=== PATIENT | male | born 1990 | race Caucasian/White ===

== ENCOUNTER 2020-04-18 08:42 | Outpatient (CLI) | payer MEDICAID, SELFPAY ==
[2020-04-21 05:37] LABS: Patient Race White; SARS-CoV-2 RNA Undetected (Undetected); SARS-CoV-2 Specimen Source Nasal
== END 2020-04-18 09:02 ==
PROVIDERS: PCP Nurse Practitioner; Visit Provider Nurse Practitioner Adult Health
DX: Z11.59 Encounter for screening for other viral diseases (principal)
CPT/HCPCS: U0003

== ENCOUNTER 2022-07-29 13:23 | Emergency (ER) | payer MEDICARE, MEDICAID, SELFPAY ==
[2022-07-29 13:27] VITALS: BP 115/72; PULSE 94; RESP 16; TEMP 37.4; O2SAT 97
--- NOTE | 2022-07-29 13:50 | W.ED.GENAD ---
Discharge Plan Disposition Patient Disposition: Home Discharge Details Clinical Impression: Erythematous rash Primary Care Provider: Dipti Florentino ED Provider: Freddy Swain Home Meds and New Rx's Prescriptions: No Action No Known Home Meds Discharge Instructions Additional Instructions: You were seen in the emergency department for your rash. Your rash does not appear dangerous at this point time. If you develop fevers difficulty breathing or any blisters to your rash please return to the emergency department. For your cold symptoms you may take DayQuil as directed on the package during the day. You may also take Tylenol 1000 mg every 8 hours as needed. Medical Decision Making This is a quite well-appearing normothermic and not tachycardic 32-year-old previously healthy male with erythematous rash. He has no petechial component to suggest meningitis. He is not toxic appearing and has no blisters to suggest Byrd-Coy's nor [place]. No new medications nor fevers to suggest dress syndrome. No vesicles to suggest zoster. No pain out of proportion to suggest necrotizing soft tissue infection. No shortness of breath hypoxia nausea vomiting nor wheezes to suggest anaphylaxis so no indication for epinephrine. Patient's rash is likely a viral exanthem secondary to his current URI symptoms for which I have advised [id number]-[id number] medications as needed. Given that there was a component of pruritus will treat with one-time oral dexamethasone at 8 mg. I have advised outpatient PMD follow-up and asked health community health outreach worker Elin to coordinate follow-up patient's primary care team in the next week. I also advised patient to return to the emergency department if he develops shortness of breath fevers or any blisters on his rash. He understood his return indications and will proceed with an empiric trial of outpatient expectant management. Chronic conditions affecting the care of the patient: N/A History obtained from an outside historian: None External record review: N/A Medications: One-time dexamethasone HPI General Date/Time Provider Initiated Documentation: 07/29/22 13:47. HPI Narrative: This is a 32-year-old male with a history of ADHD and autism arriving to the emergency department in the setting of a rash. Patient noted that he had a rash on his right lower extremity yesterday that resolved. This morning he noticed that he had rashes to his bilateral forearms. He has also had a runny nose and a cough. He tested himself at home and was negative for COVID. He has had no new medications nor any new detergents. He said that his rash was itching this morning previously on his left arm. He does not feel short of breath. He has not been nauseous nor vomiting. He denies any allergies. He did not have any new foods. Denies any history of any recent falls. Follows with his primary care provider with [facility]. Related Data Home Medications Medication Instructions Recorded Confirmed Unknown [No Known Home Meds] 07/29/19 07/29/22 Allergies Allergy/AdvReac Type Severity Reaction Status Date / Time No Known Allergies Allergy Verified 07/29/22 13:33 General Stated Complaint: RashLesion ALISON: 4 PFSH All Active Problems (Updated 07/29/22 @ 13:50 by Freddy Swain MD) Erythematous rash (Acute) Conductive hearing loss, external ear (Acute) Impacted cerumen of left ear (Acute) Routine general medical examination at a health care facility (Acute) Autism (Acute) Attention deficit disorder with hyperactivity (Acute) Encounter to establish care (Acute) Medical History Attention deficit disorder without mention of hyperactivity Surgical History H/O eye surgery at History of placement of ear tubes ~1992 Family History Mother Alcohol abuse Substance abuse Father , Heart Attack or Stroke Alcohol abuse Substance abuse Social History Smoking/Tobacco Use Status: Current-Occasional Tobacco Type: e-cigarettes Smoking risk assessment performed?: Yes Alcohol Intake: never Substance use type: marijuana Details: Patient vapes Adopted: Yes Foster care: Yes Household members: none Housing: house Number of Children: 1 Communication Needs: Corrective Lenses Education Level: high school Do you need help understanding health information?: Always 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 Sexually active: Yes Do you think of yourself as: straight/heterosexual Current gender identity: male How often do you talk on the phone with friends or family?: once per week How often do you get together with friends or relatives?: once per week Panel score (0-1 are the most socially isolated patients): 0 What type of physical activity do you participate in: walking Duration: 15-30 minutes/day Frequency: daily Seatbelt use: always Drive intox or ride w/intox explosives truck driver: No Working smoke detector in home: Yes Fire extinguisher in home: Yes Carbon monox detector in home: Yes Do you feel safe at home: Yes Exam Narrative Exam Narrative: General: Well-appearing in no acute distress speaking in complete sentences. Head: Normocephalic, atraumatic Ear, nose, mouth, throat: Grossly normal inspection. Normal voice, handling secretions normally. Neck: Trachea midline. Cardiovascular: Well-perfused distal extremities. Respiratory: Nonlabored respiration. Gastrointestinal: Nondistended abdomen. Musculoskeletal: No edema. Moving all 4 extremities spontaneously. Skin: Mildly erythematous rash to bilateral forearms and ACs. Rash is blanching. No petechiae. No bullae. No excoriations. No rash to bilateral lower extremities. Neurologic: Alert and appropriate, no apparent acute deficits. Psychiatric: Mood and manner are appropriate. Grooming and personal hygiene are appropriate. Course Vital Signs Vital signs: Vital Signs Temperature 37.4 C 07/29/22 13:27 Pulse 94 H 07/29/22 13:27 Respiratory Rate 16 07/29/22 13:27 Blood Pressure 115/72 07/29/22 13:27 Pulse Oximetry 97 07/29/22 13:27 Temperature 37.4 C 07/29/22 13:27 Pulse 94 H 07/29/22 13:27 Respiratory Rate 16 07/29/22 13:27 Respiratory Effort Normal 07/29/22 13:33 Blood Pressure 115/72 07/29/22 13:27 Blood Pressure Position Sitting 07/29/22 13:27 Pulse Oximetry 97 07/29/22 13:27 Oxygen Delivery Method Room Air 07/29/22 13:27 Oxygen Flow Rate 0 07/29/22 13:27 Pain Level 4 07/29/22 13:27
[2022-07-29] MEDS: Dexamethasone 4 MG TAB 8 MG PO (14:01)
--- NOTE | 2022-07-29 14:23 | NUR.NOTE ---
Referral made per Dr. Swain to PCP at [facility] in 5 days for a rash. Put the referral in the director of health care marketing's box for follow up assistance.Nursing Note:
== END 2022-07-29 14:01 | disposition home or self-care (01) ==
PROVIDERS: Emergency Provider Emergency Medicine; PCP Nurse Practitioner
DX: L53.9 Erythematous condition, unspecified (principal); F90.9 Attention-deficit hyperactivity disorder, unspecified type; F84.0 Autistic disorder
CPT/HCPCS: 99283; 99284; J8540

== ENCOUNTER 2022-07-31 02:09 | Outpatient (CLI) | payer MEDICARE, MEDICAID, SELFPAY ==
[2022-07-31 11:23] LABS: Calculated LDL 49 mg/dL (<100); Cholesterol 111 mg/dL (<200); HDL Cholesterol 56 mg/dL (40-60); Triglyceride 34 mg/dL (<150)
[2022-08-01 10:15] LABS: HIV-1/2 Ag & Ab Screen Negative (Negative)
[2022-08-01 12:13] LABS: Hepatitis C Ab w Rflx HCV PCR Negative (Negative)
== END 2022-07-31 02:10 | disposition home or self-care (01) ==
LOC: LBO 02:09
PROVIDERS: PCP Nurse Practitioner; Visit Provider Nurse Practitioner
DX: Z11.59 Encounter for screening for other viral diseases (principal); Z13.220 Encounter for screening for lipoid disorders
CPT/HCPCS: 36415; 80061; 86803; 87389

== ENCOUNTER 2023-06-17 15:45 | Outpatient (REF) | payer MEDICARE, MEDICAID, SELFPAY ==
[2023-06-17 18:00] LABS: HCT 47.5 % (40.0-50.0); HGB 16.2 g/dL (13.5-17.5); MCH 31.2 pg (27.0-33.0); MCHC 34.1 % (32.0-36.0); MCV 91 fL (80-95); MPV 10.6 fL (8.0-11.0); Platelet Count 280 10^3/uL (130-400); RDW 12.6 % (11.8-14.1); RDW-SD 41.8 fL; WBC 13.46 10^3/uL (4.4-10.8)
[2023-06-17 18:17] LABS: ALT 79 U/L (16-63); AST 32 U/L (15-37); Albumin 4.2 g/dL (3.4-5.0); Alkaline Phosphatase 71 U/L (46-116); Anion Gap 9.4 mmol/L (3-11); BUN 10 mg/dL (7-18); Bilirubin, Total 0.5 mg/dL (0.2-1.0); CO2 26.6 mmol/L (21.0-32.0); CREATININE 0.9 mg/dL (0.70-1.30); Calcium 9.5 mg/dL (8.5-10.1); Chloride 102 mmol/L (98-107); Estimated GFR 114.93 (mL/min/1.73m2); Glucose 103 mg/dL (74-106); Lipase 33 U/L (16-77); Potassium 4.4 mmol/L (3.5-5.1); Sodium 138 mmol/L (136-145); Total Protein 7.3 g/dL (6.4-8.2)
== END 2023-06-17 15:46 | disposition home or self-care (01) ==
LOC: LBN 15:45
PROVIDERS: PCP Nurse Practitioner; Visit Provider Nurse Practitioner Family
DX: R10.11 Right upper quadrant pain (principal)
CPT/HCPCS: 80053; 83690; 85027

== ENCOUNTER → 2023-06-18 01:55 | Outpatient (CLI) | payer MEDICARE, MEDICAID, SELFPAY ==
--- NOTE | 2023-06-18 | DI.US_ITS ---
Exam(s) US ABDOMEN EXAM: US ABDOMEN CLINICAL HISTORY: RUQ PAIN,R10.11 TECHNIQUE: Ultrasound of complete upper abdomen performed using standard protocol. COMPARISON: No exams were available for comparison FINDINGS: There is no ascites evident. LIVER: Liver is hyperechoic indicating an element of steatosis. Liver size appears normal. There ar e no discrete focal hepatic lesions evident. GALLBLADDER/BILIARY: Gallbladder is contracted and difficult to evaluate. There appears to be a poss ible 7 mm calculus in the gallbladder neck region. Gallbladder appears somewhat edematous but this m ay be spurious/related to being contracted The common hepatic duct isnot dilated, measuring 4mm at the level of deisi hepatis. PANCREAS: There is no evidence of pancreatic mass nor dilatation of the pancreatic duct. SPLEEN: The spleen is not enlarged and there are no intrasplenic lesions evident. KIDNEYS:Kidneys exhibit normal size with no evidence of solid mass, calculus, nor hydronephrosis. No cortical cysts evident. ABDOMINAL AORTA: There is no evidence of abdominal aortic aneurysm. IVC: Normal diameter where visualized. IMPRESSION: 1. Gallbladder is contracted and difficult to evaluate but there appears to be a probable gallstone. Recommend repeat study after NPO for longer period of time. Apparently the patient was not tender over the gallbladder during scanning today. I recommend repeating the study after 18 at hours fastin g 2. No other significant ultrasound findings in the upper abdomen. 3. There is no ascites. DATA REPOSITORY:
== END ==
PROVIDERS: PCP Nurse Practitioner; Visit Provider Nurse Practitioner Family
DX: K80.00 Calculus of gallbladder with acute cholecystitis without obstruction (principal)
CPT/HCPCS: 76700

== ENCOUNTER → 2023-06-19 01:51 | Outpatient (CLI) | payer MEDICARE, MEDICAID, SELFPAY ==
--- NOTE | 2023-06-19 07:00 | DI.US_ITS ---
Exam(s) US ABDOMEN LIMITED EXAM: US ABDOMEN LIMITED CLINICAL HISTORY: RUQ pain,R10.11,REPEAT TECHNIQUE: Ultrasound abdomen performed using standard protocol. COMPARISON: US US ABDOMEN from 06/18/2023 FINDINGS: The patient has been NPO 18 hours. GALLBLADDER:The gallbladder is contracted. There is a 6 mm stone within the gallbladder. It is not mobile. No evidence of wall thickening. No pericholecystic fluid identified. BILIARY SYSTEM: Common bile duct measures < 7 mm. No intrahepatic biliary ductal dilation. DO'S SIGN: Negative. IMPRESSION: Cholelithiasis within a contracted gallbladder. No biliary ductal dilatation. DATA REPOSITORY:
== END ==
PROVIDERS: PCP Nurse Practitioner; Visit Provider Nurse Practitioner
DX: R10.11 Right upper quadrant pain (principal); K80.20 Calculus of gallbladder without cholecystitis without obstruction
CPT/HCPCS: 76705

== ENCOUNTER 2023-10-11 05:17 | Emergency (ER) | payer MEDICARE, MEDICAID, SELFPAY ==
[2023-10-11 05:19] VITALS: BP 147/83; PULSE 65; RESP 18; TEMP 36.4; O2SAT 96
[2023-10-11] MEDS: Ketorolac 15 MG/ML VIAL IVP (05:33)
[2023-10-11] MEDS: Acetaminophen 500 MG TAB 1000 MG PO (05:33)
[2023-10-11 05:38] LABS: Lactate 1.1 mmol/L (0.6-1.4)
[2023-10-11 05:40] LABS: Abs Immature Grans 0.02 10^3/uL (0.0-0.06); Absolute Basophil Count 0.05 10^3/uL (0.0-0.2); Absolute Eosinophil Count 0.11 10^3/uL (0.0-0.7); Absolute Lymphocyte Count 2.02 10^3/uL (1.2-3.4); Absolute Monocyte Count 0.42 10^3/uL (0.1-0.8); Absolute Neutrophil Count 4.52 10^3/uL (1.2-6.7); Basophils % 0.7 %; Eosinophils % 1.5 %; HCT 48.5 % (40.0-50.0); HGB 16.4 g/dL (13.5-17.5); Immature Grans % 0.3 %; Lymphocytes % 28.3 %; MCH 31.5 pg (27.0-33.0); MCHC 33.8 % (32.0-36.0); MCV 93 fL (80-95); MPV 9.9 fL (8.0-11.0); Monocytes % 5.9 %; Neutrophils % 63.3 %; Platelet Count 237 10^3/uL (130-400); RDW 12.6 % (11.8-14.1); RDW-SD 43.2 fL; WBC 7.14 10^3/uL (4.4-10.8)
--- NOTE | 2023-10-11 05:40 | ED.GENADUL_ITS ---
Discharge Plan Disposition Patient Disposition: Home Condition: Good Discharge Details Clinical Impression: Biliary colic Primary Care Provider: Dipti Florentino ED Provider: Anastacia Bonilla Discharge Instructions Instructions: Biliary Colic (ED) Additional Instructions: Call your primary care doctor today to schedule an appointment within one week to followup on your visit today. Return to the emergency department for new or worsening symptoms including fever, yellowing of your skin, vomiting, or if your pain returns and does not go away within 3-4 hours. Stand Alone Forms: Work Release Referrals: Dipti Florentino, KIARA [Primary Care Provider] - [facility] General Mode of arrival: ambulatory . Date/Time Provider Initiated Documentation: 10/11/23 05:21 . Limitations to Documentation: no limitations . Information obtained by: patient, family ([facility] child care center assistant director) and old records reviewed . HPI Narrative: 33yo M with hx autism, ADHD, known gallstones, presenting for RUQ pain. Woke around 0430 this morning with moderate 5-6/10 RUQ pain. Has not taken anything for pain. Pain is dull, burning, constant, non-radiating. No alleviating or aggravating factors. Had similar pain in June and was seen in urgent care and diagnosed with gallstones. Pain has decreased to around 2/10 prior to arrival. No fevers, nausea, or vomiting. He is otherwise in his usual state of health with no chills, rash, lower abdominal pain, flank pain, dysuria, hematuria, or other concerns. Related Data Allergies Allergy/AdvReac Type Severity Reaction Status Date / Time No Known Allergies Allergy Verified 10/11/23 05:27 General Stated Complaint: Abd Prob ALISON: 3 Review of Systems Narrative: see HPI Exam Narrative Exam Narrative: General: Alert, well appearing, well nourished, in no acute distress. Head: Normocephalic, atraumatic Neck: Trachea midline, ?Neck supple. Cardiac: ?RRR, no murmurs appreciated Resp: No respiratory distress. CTAB. Abd: ?Soft, non-distended, non-tender. No RUQ tenderness to palpation. Negative Young's. No abdominal, flank, or back rash. : ?No suprapubic tenderness. No CVA tenderness. Extremities: ?No deformities.? No peripheral edema. Neurologic: GCS 15. ? Moves all extremities freely against gravity Course Vital Signs Vital signs: Vital Signs Temperature 36.4 C 10/11/23 05:19 Pulse 65 10/11/23 05:19 Respiratory Rate 18 10/11/23 05:19 Blood Pressure 147/83 H 10/11/23 05:19 Pulse Oximetry 96 10/11/23 05:19 Temperature 36.4 C 10/11/23 05:19 Temperature Source Oral 10/11/23 05:19 Pulse 65 10/11/23 05:19 Respiratory Rate 18 10/11/23 05:19 Respiratory Effort Normal, Non-Labored 10/11/23 05:23 Blood Pressure 147/83 H 10/11/23 05:19 Blood Pressure Position Sitting 10/11/23 05:19 Pulse Oximetry 96 10/11/23 05:19 Oxygen Delivery Method Room Air 10/11/23 05:19 Oxygen Flow Rate 0 10/11/23 05:19 Pain Level 5 10/11/23 05:19 Medical Decision Making 33yo M with hx autism, ADHD, known gallstones, presenting for RUQ pain. Woke around 0430 this morning with moderate 5-6/10 RUQ pain; has decreased to 2/10 without intervention. Similar pain in June; US read from that time reviewed and showed contracted gallbladder with gallstone present. Borderline hypertensive on arrival, vital signs otherwise reassuring. Benign abdominal exam with negative Young's and no RUQ tenderness. No rash to suggest shingles. No CVA tenderness or hematuria to suggest kidney stone. Not septic. Suspect most likely symptomatic biliary colic. Will treat with tylenol & toradol. If pain continues to decreases and labs reassuring, would not pursue imaging/ultrasound (no ultrasound available at this time, would need to wait for morning). Labs reviewed as below, CBC with no leukocytosis or anemia, CMP with normal LFTs and electrolytes, lipase normal (not pancreatitis), lactate normal. UA not suggestive on infection or stone. On reassessment he reports his pain has entirely resolved. Abdominal exam remains benign. With complete resolution of pain and known gallstones, little utility to repeat RUQ US this morning. Discharged home to followup with PCP, may benefit from surgical referral at some point, will defer to PCP. Discharged home; discharge instructions and return precautions reviewed with patient and family at bedside. All questions were answered and they are in full agreement with the plan. Lab Data Lab results reviewed: Yes I reviewed the patient's lab results. Labs: Laboratory Tests Range/Units 10/11/23 05:35 WBC (4.4-10.8) 10^3/uL 7.14 RBC (4.36-5.78) 10^6/uL 5.20 Hgb (13.5-17.5) g/dL 16.4 Hct (40.0-50.0) % 48.5 MCV (80-95) fL 93 MCH (27.0-33.0) pg 31.5 MCHC (32.0-36.0) % 33.8 RDW (11.8-14.1) % 12.6 Plt Count (130-400) 10^3/uL 237 MPV (8.0-11.0) fL 9.9 Immature Gran % % 0.3 Neutrophils % % 63.3 Lymphocytes % % 28.3 Monocytes % % 5.9 Eosinophils % % 1.5 Basophils % % 0.7 Nucleated RBC % (0.0-0.3) % 0.0 Absolute Neutrophils (1.2-6.7) 10^3/uL 4.52 Absolute Lymphocytes (1.2-3.4) 10^3/uL 2.02 Absolute Monocytes (0.1-0.8) 10^3/uL 0.42 Absolute Eosinophils (0.0-0.7) 10^3/uL 0.11 Absolute Basophils (0.0-0.2) 10^3/uL 0.05 VBG Lactate (0.6-1.4) mmol/L 1.1 Sodium (136-145) mmol/L 143 Potassium (3.5-5.1) mmol/L 4.0 Chloride (98-107) mmol/L 106 Carbon Dioxide (21.0-32.0) mmol/L 26.6 Anion Gap (3-11) mmol/L 10.4 BUN (7-18) mg/dL 13 Creatinine (0.70-1.30) mg/dL 1.0 Est GFR (CKD-EPI 2020) (mL/min/1.73m2) 101.28 Glucose (74-106) mg/dL 106 Calcium (8.5-10.1) mg/dL 8.7 Total Bilirubin (0.2-1.0) mg/dL 0.5 AST (15-37) U/L 18 ALT (16-63) U/L 57 Alkaline Phosphatase (46-116) U/L 77 Total Protein (6.4-8.2) g/dL 7.3 Albumin (3.4-5.0) g/dL 4.0 Lipase (16-77) U/L 55 Quality:SDOH Health Related Social Needs: Health related social needs risk of homeless Health related social needs details has own apartment, no issues with food sources per pt. PFSH All Active Problems (Updated 10/11/23 @ 06:57 by Anastacia Bonilla MD) Biliary colic (Acute) Cholelithiasis (Acute) per 06/19/23 US RUQ discomfort (Acute) Gastrointestinal tract imaging abnormality (Acute) 06/2023 US ([facility]) Conductive hearing loss, external ear (Acute) Impacted cerumen of left ear (Acute) Routine general medical examination at a health care facility (Acute) Autism (Acute) Attention deficit disorder with hyperactivity (Acute) Encounter to establish care (Acute) Medical History Attention deficit disorder without mention of hyperactivity Surgical History H/O eye surgery at History of placement of ear tubes ~1992 Family History Mother Alcohol abuse Substance abuse Father , Heart Attack or Stroke Alcohol abuse Substance abuse Social History (Updated 06/11/23 @ 10:44 by Rosy Rivero LPN) Smoking/Tobacco Use Status: Current-Occasional Tobacco Type: e-cigarettes Smoking risk assessment performed?: Yes Alcohol Intake: never Drug use: Occasionally Substance use type: marijuana Details: Patient vapes Adopted: Yes Foster care: Yes Household members: none Housing: apartment Number of Children: 1 Communication Needs: Corrective Lenses Education Level: high school Do you need help understanding health information?: Always current occupation: unemployed at present Sexually active: Yes Do you think of yourself as: straight/heterosexual Current gender identity: male How often do you talk on the phone with friends or family?: once per week How often do you get together with friends or relatives?: once per week Panel score (0-1 are the most socially isolated patients): 0 What type of physical activity do you participate in: walking Duration: 15-30 minutes/day Frequency: daily Seatbelt use: always Drive intox or ride w/intox ems driver: No Working smoke detector in home: Yes Fire extinguisher in home: Yes Carbon monox detector in home: Yes Do you feel safe at home: Yes Do you feel safe in your relationship?: Yes
[2023-10-11 05:55] LABS: ALT 57 U/L (16-63); AST 18 U/L (15-37); Alkaline Phosphatase 77 U/L (46-116); Anion Gap 10.4 mmol/L (3-11); BUN 13 mg/dL (7-18); Bilirubin, Total 0.5 mg/dL (0.2-1.0); CO2 26.6 mmol/L (21.0-32.0); Calcium 8.7 mg/dL (8.5-10.1); Chloride 106 mmol/L (98-107); Estimated GFR 101.28 (mL/min/1.73m2); Glucose 106 mg/dL (74-106); Lipase 55 U/L (16-77); Sodium 143 mmol/L (136-145); Total Protein 7.3 g/dL (6.4-8.2)
[2023-10-11 06:55] LABS: Bilirubin Negative (Negative); Blood Negative (Negative); Clarity Clear (Clear); Glucose Negative (Negative); Ketones Negative (Negative); Leukocyte Esterase Negative (Negative); Nitrite Negative (Negative); Specific Gravity >= 1.030 (1.005-1.025); Urobilinogen 0.2 mg/dL (Up to 0.2); pH 5.5 (5-8)
[2023-10-11 07:07] VITALS: BP 138/57; PULSE 78; RESP 21; TEMP 36.6; O2SAT 96
== END 2023-10-11 07:09 | disposition home or self-care (01) ==
PROVIDERS: Emergency Provider Student in an Organized Health Care Education/Training Program; PCP Nurse Practitioner
DX: K80.20 Calculus of gallbladder without cholecystitis without obstruction (principal); F17.290 Nicotine dependence, other tobacco product, uncomplicated
CPT/HCPCS: 80053; 83690; 96374; 99283; 81003; 83605; 85025; J1885

== ENCOUNTER 2023-12-29 04:48 | Emergency (ER) | payer MEDICARE, MEDICAID, SELFPAY ==
[2023-12-29 04:50] VITALS: BP 141/84; PULSE 75; RESP 16; TEMP 36.8; O2SAT 98
[2023-12-29 04:52] VITALS: BP 141/84; PULSE 75; RESP 16; TEMP 36.8; O2SAT 98
--- OUTSIDE RECORDS SUMMARY | 2023-12-29 04:53 | XMS_ITS | Encounter Summary ---
Author Organization [facility] Address [address] [place] [address] Care Team Providers Care Respiratory Equipment Assistant Name Role Phone Gennaro Gomez MD Primary Care Provider +1 [phone] Reason for Visit * Reason Comments Sexually Transmitted Diseases ALYSSA Moreno Encounter Details Date Type Department Care Team (Late st Contact Info) Description 10/27/2018 16:30 EDT Office Visit [facility] [address] [id number] Mariana Stewart, Ruiz Cardenas MD [address] [place] [address] Rox Morris MD [address] [place] [id number] Routine screening for STI (sexually transmitted infection) (Primary Dx); Need for Tdap vaccination Discharge Disposition: Auto Discharge Social History Tobacco Use Types Packs/Day Years Used Date Smoking Tobacco: Never Smokeless Tobacco: Never Comments:Uses Vapor cigarett es (non nicotine) Alcohol Use Standard Drinks/Week Comments Yes 0 (1 standard drink = 0.6 oz pur e alcohol) Sex and Gender Information Value Date Recorded Sex Assigned at Not on file Gender Identity Not on file Sexual Orientation Not on file documented as of this encounter Last Filed Vital Signs Vital Sign Reading Time Taken Comments Blood Pressure 106/62 10/27/2018 1633 EDT Pulse 68 10/27/2018 1633 EDT Temperature - - Respiratory Rate - - Oxygen Saturation - - Inhaled Oxygen Concentration - - Weight 76.2 kg (168 lb) 10/27/2018 1633 EDT Height 175.3 cm (5' 9) 10/27/2018 1633 EDT Body Mass Index 24.81 10/27/2018 1633 EDT documented in this encounter Functional Status Functional Status Response Date of Assess ment Because of a physical, menta l, or emotional condition, does this person have difficulty doing errands alone such as visiting a doctor's office or shopping? No 10/27/2018 Cognitive Status Response Date of Assessm ent Because of a physical, menta l, or emotional condition, does this person have serious difficulty concentrating, remembering, or making decisions? No 10/27/2018 documented as of this encounter Discharge Diagnoses Diagnosis Z11.3 Encounter for screening for infections with a predominantly sexual mode of transmission-Z11.3[ICD-10-CM] documented in this encounter Patient Instructions * Patient Instructions* Rox Morris MD - 10/27/2018 16:30 EDT [facility] [address] [facility] [phone] Albaro Richardson DDS [address] [place], [place] [phone] [facility] [address] [place] [address] [phone] Private Practices with reputation for income sensitivity [facility] [address] [facility] [place], [place] [phone] [facility] [address] [place] [address] [phone] Federally Qualified Health Centers - offer sliding scale fee based on income Nearby... [facility]: [address] [place], [place]. [phone] [facility]: [address] [place], [place]. [phone] Further away... [facility]: [address] [place], [place]. [phone] [facility]: [address] [place], [place]. [phone] [facility]: [address], [place], [place]. [phone] [facility]: [address] [place], [place]. [phone] [facility]: [address] [place], [place]. [phone] [facility]: [address] [place], [place]. [phone] [facility]: [address] [phone] [facility]: [address] [place], [place]. [phone] [facility]: [address] [place], [place]. [phone] documented in this encounter Discharge Disposition Disposition Code Departure Means Destination Auto Discharge documented in this encounter Progress Notes * Mariana Stewart FNP - 10/27/2018 1630 EDT New Patient Visit Note Date of Service: 10/27/2018 CC: Sexually Transmitted Diseases (NEW PATIENT ) Subjective: Edin Wallace is a 28 y.o. male with no significant PMH, here to establish care with a PCP and for STI testing. Sexual history reviewed with the patient. Current 1 female partner. No past male partners. Has never had STI testing before. STD exposure: denies knowledge of risky exposure. Previous history of STD: none. Current symptoms include none. Contraception: none. ROS Denies fevers, chills, chest pain, shortness of breath, abdominal pain, leg swelling, unintentionalweight loss, nausea, vomiting, rash, sore throat History: Social, family, and personal medical history reviewed and documented in the medical [id number] Patient Active Problem List Diagnosis Date Noted ??? ADHD 10/27/2018 Priority: Medium Diagnosed as a child, not on any medications as an adult Medications: Reviewed and documented in the medical record 10/27/18 No current outpatient medications No Known Allergies Immunizations: Unsure of last tetanus booster Social History Tobacco Use ??? Smoking status: Never Smoker ??? Smokeless tobacco: Never Used ??? Tobacco comment: Uses Vapor cigarettes (non nicotine) Substance Use Topics ??? Alcohol use: Yes ??? Drug use: Yes Types: Marijuana Works in [employer] Lives here in [place] Lives with his partner/ friend Teresa Patient is adopted; limited known family history Objective: VS: Blood pressure 106/62, pulse 68, height 175.3 cm (69), weight 76.2 kg (168 lb). Body mass index is 24.81 kg/m??. Physical Exam Gen: sitting comfortably in exam chair Psych: alert and oriented x 3, cooperative HEENT: MMM. PERRL. Broken backmost molar of the left, without evidence of caries or abscess/infection. CV: Heart RRR Lungs: Effort Normal, lungs clear to auscultation GI: abdomen non distended Neuro: moves all 4 extremities. Grossly normal Ext: warm and well perfused. No edema. Vitals reviewed Assessment and Plan: Edin was seen today for sexually transmitted diseases. Diagnoses and all orders for this visit: Routine screening for STI (sexually transmitted infection) No prior STI history, here to establish care and obtain routine STI screening in a relatively low-risk heterosexual male. Will call with results. - HIV 1/2 ANTIGEN AND ANTIBODY, 4TH GENERATION - SYPHILIS SEROLOGY - CHLAMYDIA/N. GONORRHOEAE AMPLIFIED RNA, URINE - HEPATITIS C AB W REFLEX TO HCV RNA BY PCR Need for Tdap vaccination Unknown last tetanus vaccine. Works in [employer], counseled on recommendation to perform Tdap booster today, which patient accepted - TDAP VACCINE =>7YO IM Seen and discussed with Dr. Rivas at time of visit Rox Morris MD 10/27/2018 18:30 * Iris Roman - 10/27/2018 1630 EDT Venipuncture performed for Syphilis, HIV and Hep C. Collected in right arm without incident. Per orders of Margret Rivas Diagnosis of Z11.4 I was supervised by Sathish Rivas who was present and immediately available in the office suite. Iris Roman 10/27/2018 17:27 * Ruiz Rivas - 10/27/2018 1630 EDT Attestation statement for office patient seen by attending: I saw and examined the patient on the day of this service and agree with the findings and plan of care documented in the resident's/fellow's note. Ruiz Rivas MD Family Medicine Attending 10/28/2018 6:28 documented in this encounter Plan of Treatment Not on file documented as of this encounter Procedures Procedure Name Priority Date/Time Associated Diagnosis Comments SYPHILIS SEROLOGY Routine 10/27/2018 16: 55 EDT Routine screening for STI (sexually transmitted infection) CHLAMYDIA/N. GONORRHOEAE AMPLIFIED RNA, URINE Routine 10/27/2018 16:55 EDT Routine screening for STI (sexually transmitted infection) HEPATITIS C AB W REFLEX TO HCV RNA BY PCR Routine 10/27/2018 16:55 EDT Routine screening for STI (sexually transmitted infection) HIV 1/2 ANTIGEN AND ANTIBODY, 4TH GENERATION Routine 10/27/2018 16:55 EDT Routine screening for STI (sexually transmitted infection) documented in this encounter Results * HEPATITIS C AB W REFLEX TO HCV RNA BY PCR (10/27/2018 16:55 EDT) Hep C Ab w Rfx PCR HCSCR2 Negative Negative 10/28/2018 11:27 EDT [facility] Blood specimen (specimen) BLOOD SPECIMEN / Unknown 10/27/2018 16:55 EDT 10/27/2018 19:30 EDT Ruiz Rivas MD CHEMISTRY & BLOOD GA S ORDERABLES [facility] [address] [place] [address] * CHLAMYDIA/N. GONORRHOEAE AMPLIFIED RNA, URINE (10/27/2018 16:55 EDT) Chlamydia Result Negative 10/28/2018 14:52 EDT [facility] GC Result Negative 10/28/2018 14:52 EDT [facility] Specimen of unknown material (specimen) URINE / Unknown 10/27/2018 16:55 EDT 10/27/2018 20:25 EDT Ruiz Rivas MD MICROBIOLOGY - GENER AL ORDERABLES Performing Organization Address [facility] Co de Phone Number [facility] [address] [place] [address] * SYPHILIS SEROLOGY (10/27/2018 16:55 EDT) Syphilis Serology Negative 10/28/2018 10:37 EDT [facility] Comment:Reference Range: Neg ative Blood specimen (specimen) BLOOD SPECIMEN / Unknown 10/27/2018 16:55 EDT 10/27/2018 19:30 EDT Ruiz Rivas MD IMMUNOLOGY AND SEROL OGY ORDERABLES Performing Organization Address [facility] Co de Phone Number [facility] [address] [place] [address] * HIV 1/2 ANTIGEN AND ANTIBODY, 4TH GENERATION (10/27/2018 16:55 EDT) HIV 1/2 Antibody Negative Negative 10/29/19 12:22 EDT [facility] Comment: Fourth generation assay performed on the Siemens Centaur. If acute HIV-1 infection is suspected in a high risk patient, submit plasma specimen for HIV-1 RNA quantification test. Blood specimen (specimen) BLOOD SPECIMEN / Unknown 10/27/2018 16:55 EDT 10/27/2018 19:30 EDT Ruiz Rivas MD IMMUNOLOGY AND SEROL OGY ORDERABLES Performing Organization Address [facility] Co de Phone Number [facility] [address] [place] [address] documented in this encounter Visit Diagnoses Diagnosis Routine screening for STI (sexually transmitted infection)- Primary Screening examination for venereal disease Need for Tdap vaccination Need for prophylactic vaccination with combined nztwyntjmy-lropjkh-tqdbcngjx (DTP) vaccine documented in this encounter Orders Immunization/Injection Count Last Ordered Date First Ordered Date TDAP VACCINE =>7YO IM 1 10/27/2018 documented in this encounter Care Teams Respiratory Equipment Assistant Relationship Specialty Start Date End Date Gennaro Gomez MD PCP - General 10/22/18 12/06/20 documented as of this encounter
--- OUTSIDE RECORDS SUMMARY | 2023-12-29 04:53 | XMS_ITS | Encounter Summary ---
Author Organization [facility] Address [address] [place] [address] Care Team Providers Care Continuous Pickling Line Pickler Helper Name Role Phone Peyton Lynch MD Primary Care Provid er Encounter Details Date Type Department Care Team (Late st Contact Info) Description 07/31/2022 Lab Requisition [facility] Pathology & Laboratory Medicine - [facility] [address] [place] [address] Outr Resulting Lab, Provider Social History Tobacco Use Types Packs/Day Years Used Date Smoking Tobacco: Never Assessed Interpersonal Safety Answer Date Record ed Physically Hurt Never 01/10/2020 Verbally Threaten Not on file 01/10/2020 Sex and Gender Information Value Date Recorded Sex Assigned at Not on file Gender Identity Not on file Sexual Orientation Not on file documented as of this encounter Functional Status Functional Status Response [...] No 10/27/2018 documented as of this encounter Plan of Treatment Not on file documented as of this encounter Procedures Procedure Name Priority Date/Time Associated Diagnosis Comments HEPATITIS C AB W REFLEX TO HCV RNA BY PCR Routine 07/31/2022 10:38 EST documented in this encounter Results * HEPATITIS C AB W REFLEX TO HCV RNA BY PCR (07/31/2022 10:38 EST) Hep C Antibody Negative Negative 08/01/2022 12:09 EST [facility] Blood VENOUS BLOOD / Unknown 07/31/2022 10:38 EST 07/31/2022 17:14 EST Provider Outr Resulting Lab CHEMISTRY & BLOOD GAS ORDERABLES [facility] [address] [place] [address] documented in this encounter Visit Diagnoses Not on filedocumented in this encounter Care Teams Continuous Pickling Line Pickler Helper Relationship Specialty Start Date End Date Peyton Lynch MD [address] [place] [address] PCP - General 12/07/20 documented as of this encounter
--- OUTSIDE RECORDS SUMMARY | 2023-12-29 04:53 | XMS_ITS | Encounter Summary ---
Author Organization [facility] Address [address] [place] [address] Care Team Providers Care Manager Infusion Name Role Phone Peyton Lynch MD Primary Care Provid er Encounter Details Date Type Department Care Team (Late st Contact Info) Description 07/31/2022 Lab Requisition [facility] Pathology & Laboratory Medicine - [facility] [address] [place] [address] Outr Resulting Lab, Provider Social History Tobacco [...] Procedure Name Priority Date/Time Associated Diagnosis Comments HIV 1/2 ANTIGEN AND ANTIBODY, 4TH GENERATION Routine 07/31/2022 10:38 EST documented in this encounter Results * HIV 1/2 ANTIGEN AND ANTIBODY, 4TH GENERATION (07/31/2022 10:38 EST) HIV 1 and 2 Antibody/p24 Antigen, 4th Generation Negative Negative 08/01/2022 10:10 EST [facility] Comment:If acute HIV-1 infec tion is suspected in a high risk patient, submit plasma specimen for HIV-1 RNA quantitation test. Blood VENOUS BLOOD / Unknown 07/31/2022 10:38 EST 07/31/2022 17:14 EST Narrative [facility] - 08/01/2022 10:10 EST Fourth Generation assay performed on the Siemens Passenger Baggage Xpressaur XPT. Provider Outr Resulting Lab IMMUNOLOGY A ND SEROLOGY ORDERABLES [facility] [address] [place] [address] documented in this encounter Visit Diagnoses Not on filedocumented in this encounter Care Teams Manager Infusion Relationship Specialty Start Date End Date Peyton Lynch MD [address] [place] [address] PCP - General 12/07/20 documented as of this encounter
--- OUTSIDE RECORDS SUMMARY | 2023-12-29 04:53 | XMS_ITS | Clinical Summary ---
Author Organization [facility] Address [address] [place] [address] Care Team Providers Care Ranch Manager Name Role Phone Peyton Lynch MD Primary Care Provid er Allergies No known active allergies Medications No known medications Active Problems Problem Noted Date Diagnosed Date Desire for 12/02/2018 ADHD 10/27/2018 Overview: Diagnosed as a child, not on any medications as an adult Immunizations Name Administration Dates Next Due Tdap Vaccine =>7YO IM 10/27/2018 Medical History Medical History Date Comments Adhd diagnosed as a c hild Family History * Patient is adopted Medical History Relation Comments Cancer Father unknown type Relation Status Comments Father Mother Alive Social History Tobacco Use Types Packs/Day Years Used Date Smoking Tobacco: Never Smokeless Tobacco: Never Comments:Uses Vapor cigarett es (non nicotine) Alcohol Use Standard Drinks/Week Comments Yes 0 (1 standard drink = 0.6 oz pur e alcohol) Interpersonal Safety Answer Date Record ed Physically Hurt Never 01/10/2020 Verbally Threaten Not on file 01/10/2020 Sex and Gender Information Value Date Recorded Sex Assigned at Not on file Gender Identity Not on file Sexual Orientation Not on file Obstetrics History Last Filed Vital Signs Vital Sign Reading Time Taken Comments Blood Pressure 110/66 12/02/2018 1643 EDT Pulse 68 12/02/2018 1643 EDT Temperature - - Respiratory Rate - - Oxygen Saturation - - Inhaled Oxygen Concentration - - Weight 74.8 kg (165 lb) 12/02/2018 1643 EDT Height 175.3 cm (5' 9.02) 12/02/2018 1643 EDT Body Mass Index 24.35 12/02/2018 1643 EDT Plan of Treatment Health Maintenance Due Date Last Done Comments Social Determinants Of Healt h (SDOH) 1989 Depression Screening 2001 Advance Directive 2007 Preventive Care Visit 2007 Hepatitis B Vaccine (1 of 3 - 19+ 3-dose series) 2008 COVID-19 Vaccine (2022-2 4 season) 2023 Influenza Immunization (Adult) (#1) 2024 Tetanus (Adult) Immunization 10/27/2028 10/27/2018 Pertussis (Adult) Immunization Completed 10/27/2018 HIV Screening Completed 07/31/2022, 10/27/2018 Hepatitis C Screen Completed 07/31/2022, 10/27/2018 HPV Vaccines Aged Out No longer eligi ble based on patient's age to complete this topic Procedures Procedure Name Priority Date/Time Associated Diagnosis Comments HEPATITIS C AB W REFLEX TO HCV RNA BY PCR Routine 07/31/2022 10:38 EST HIV 1/2 ANTIGEN AND ANTIBODY, 4TH GENERATION Routine 07/31/2022 10:38 EST from Last 3 Months or Most Recently Relevant to Health Maintenance Results * HEPATITIS C AB W REFLEX TO HCV RNA BY PCR (07/31/2022 10:38 EST) Hep C Antibody Negative Negative 08/01/2022 12:09 EST [facility] Blood VENOUS BLOOD / Unknown 07/31/2022 10:38 EST 07/31/2022 17:14 EST Provider Outr Resulting Lab CHEMISTRY & BLOOD GAS ORDERABLES [facility] [address] [place] [address] * HIV 1/2 ANTIGEN AND ANTIBODY, 4TH GENERATION (07/31/2022 10:38 EST) HIV 1 and 2 Antibody/p24 Antigen, 4th Generation Negative Negative 08/01/2022 10:10 EST [facility] Comment:If acute HIV-1 infec tion is suspected in a high risk patient, submit plasma specimen for HIV-1 RNA quantitation test. Blood VENOUS BLOOD / Unknown 07/31/2022 10:38 EST 07/31/2022 17:14 EST Narrative [facility] - 08/01/2022 10:10 EST Fourth Generation assay performed on the Siemens Centaur XPT. Provider Outr Resulting Lab IMMUNOLOGY A ND SEROLOGY ORDERABLES [facility] [address] [place] [address] from Last 3 Months or Most Recently Relevant to Health Maintenance Care Teams Ranch Manager Relationship Specialty Start Date End Date Peyton Lynch MD [address] [place] [place] [address] PCP - General 12/07/20
--- OUTSIDE RECORDS SUMMARY | 2023-12-29 04:53 | XMS_ITS | Encounter Summary ---
Author Organization [facility] Address [address] [place] [address] Care Team Providers Care Administrative Support Specialist Name Role Phone Gennaro Gomez MD Primary Care Provider [phone] Reason for Visit * Reason Comments Infertility would like to check if he is able to have kids, Encounter Details Date Type Department Care Team (Late st Contact Info) Description 12/02/2018 16:30 EDT Office Visit [facility] Family Medicine [address] [address] Mariana Stewart, KIARA Desire for (Primary Dx) Social History Tobacco Use Types Packs/Day Years [...] Body Mass Index 24.35 12/02/2018 1643 EDT documented in this encounter Functional Status [...] No 10/27/2018 documented as of this encounter Progress Notes * Mariana Stewart, WAREHOUSE COORDINATOR - 12/02/2018 1630 EDT Office Visit Note Date of Service: 12/02/2018 CC: Infertility (would like to check if he is able to have kids, ) Subjective: Edni Wallace is a 28 y.o. male HPI: Patient presents for evaluation of infertility. Patient and partner have been attempting conception for 1 month. Marital Status: single. Pregnancies with current partner: no He has no concerns that he would not be able to have a child Has never had any studies for infertility His partner is a friend who has agreed to carry the child if she becomes She has had one previous They are using an melisa to track her ovulation Wt Change: No STD: no Sexual History Frequency: 1 times per week(s) Satisfied: yes Dyspareunia: No Number of lifetime sex partners: 4 Contraception None- partner Habits Cigarettes:None Alcohol: None Marijuana: Yes- four times per week ROS See HPI History: Social, family, and personal medical history reviewed and documented in the medical [id number]/25/19 Patient Active Problem List Diagnosis Date Noted ??? Desire for 12/02/2018 Priority: Medium ??? ADHD 10/27/2018 Diagnosed as a child, not on any medications as an adult Medications: Reviewed and documented in the medical record 12/02/18 No current outpatient medications on file. No current facility-administered medications for this visit. No Known Allergies Social History Tobacco Use ??? Smoking status: Never Smoker ??? Smokeless tobacco: Never Used ??? Tobacco comment: Uses Vapor cigarettes (non nicotine) Substance Use Topics ??? Alcohol use: Yes ??? Drug use: Yes Types: Marijuana Objective: VS: Blood pressure 110/66, pulse 68, height 175.3 cm (69.02), weight 74.8 kg (165 lb). Body mass index is 24.35 kg/m??. Physical Exam Gen: sitting comfortably in exam chair Psych: alert and oriented x 3, cooperative HEENT: MMM. PERRL. CV: Heart RRR Lungs: Effort Normal GI: abdomen non distended Neuro: moves all 4 extremities. Ext: warm and well perfused. No edema. Vitals reviewed Assessment and Plan: Edin was seen today for infertility. Diagnoses and all orders for this visit: Desire for : There are no current concerns for infertility or causes to assume that this patient is infertile. Advised the patient that if he and his partner would like to conceive they should attempt to have intercourse on a regular basis for at least 9-12 months. If they have not conceived by this time he may consider coming in to be evaluated for possible fertility issues. CELESTINA Trevino 12/02/2018 17:02 documented in this encounter Plan of Treatment Not on file documented as of this encounter Visit Diagnoses Diagnosis Desire for - Primary Unspecified procreative management documented in this encounter Care Teams Administrative Support Specialist Relationship Specialty Start Date End Date Gennaro Gomez MD PCP - General 10/22/18 12/06/20 documented as of this encounter
--- OUTSIDE RECORDS SUMMARY | 2023-12-29 04:53 | XMS_ITS | Encounter Summary ---
Author Organization [facility] Address [address] [place] [address] Care Team Providers Care Assistant Softball Coach Name Role Phone Gennaro Gomez MD Primary Care Provider [phone] Reason for Visit * Reason Onset Date Comments Patient Outreach 10/12/2020 Encounter Details Date Type Department Care Team (Late st Contact Info) Description 10/12/[address] [address] Gennaro Gomez MD [address] [place] [phone] Patient Outreach Social History Tobacco Use Types Packs/Day Years [...] No 10/27/2018 documented as of this encounter Miscellaneous Notes * Telephone Encounter - Brandee Julien LPN - 10/12/2020 1045 EDT Called patient for 6 month outreach, patient is due for a physical, phone is not accepting calls, letter sent. BRANDEE JULIEN LPN 10/12/2020 10:47 documented in this encounter Plan of Treatment Not on file documented as of this encounter Visit Diagnoses Not on filedocumented in this encounter Care Teams Assistant Softball Coach Relationship Specialty Start Date End Date Gennaro Gomez MD PCP - General 10/22/18 12/06/20 documented as of this encounter
--- OUTSIDE RECORDS SUMMARY | 2023-12-29 04:53 | XMS_ITS | Referral Summary ---
Author Organization [facility] Address [address] [place] [address] Care Team Providers Care Egg Packer Name Role Phone Peyton Lynch MD Primary Care Provid er Allergies No known active allergies Medications No known medications Active Problems Problem Noted Date Diagnosed Date Desire for 12/02/2018 ADHD 10/27/2018 Overview: Diagnosed as a child, not on any medications as an adult Immunizations Name Administration Dates Next Due Tdap Vaccine =>7YO IM 10/27/2018 Social History Tobacco Use Types Packs/Day Years [...] on file Sexual Orientation Not on file Last Filed Vital Signs Vital Sign Reading Time Taken Comments Blood Pressure 110/66 12/02/2018 1643 EDT Pulse 68 12/02/2018 1643 EDT Temperature - - Respiratory Rate - - Oxygen Saturation - - Inhaled Oxygen Concentration - - Weight 74.8 kg (165 lb) 12/02/2018 1643 EDT Height 175.3 cm (5' 9.02) 12/02/2018 1643 EDT Body Mass Index 24.35 12/02/2018 1643 EDT Functional Status Functional Status Response Date of [...] concentrating, remembering, or making decisions? No 10/27/2018 Plan of Treatment Not on file Procedures Procedure Name Priority Date/Time Associated Diagnosis [...] C Antibody Negative Negative 08/01/2022 12:[address] [facility] Blood VENOUS BLOOD / Unknown 07/31/2022 10:38 EST 07/31/2022 17:14 EST Provider Outr Resulting Lab CHEMISTRY & BLOOD GAS ORDERABLES Performing Organization Address City/[facility] Co de Phone Number [facility] [address] [place] [address] * HIV 1/2 ANTIGEN AND ANTIBODY, 4TH GENERATION (07/31/2022 10:38 EST) HIV 1 and 2 Antibody/p24 Antigen, 4th Generation Negative Negative 08/01/2022 10:[address] [facility] Comment:If acute HIV-1 infec tion is suspected in a high risk patient, submit plasma specimen for HIV-1 RNA quantitation test. Blood VENOUS BLOOD / Unknown 07/31/2022 10:38 EST 07/31/2022 17:14 EST Narrative [facility] - 08/01/2022 10:10 EST Fourth Generation assay performed on the Siemens Centaur XPT. Provider Outr Resulting Lab IMMUNOLOGY A ND SEROLOGY ORDERABLES Performing Organization Address City/[facility]/ZIP Co de Phone Number [facility] [address] [place] [address] from Last 3 Months or Most Recently Relevant to Health Maintenance Care Teams Egg Packer Relationship Specialty Start Date End Date Peyton Lynch MD [address] [place] [address] PCP - General 12/07/20
--- NOTE | 2023-12-29 04:59 | ED.GENADUL_ITS ---
Discharge Plan Disposition Patient Disposition: Home Condition: Good Discharge Details Clinical Impression: Biliary colic Primary Care Provider: Dipti Florentino ED Provider: Anastacia Bonilla Home Meds and New Rx's Prescriptions: No Action No Known Home Meds Discharge Instructions Instructions: Gallstones ED Additional Instructions: Call your primary care doctor today to schedule an appointment within one week to followup on your visit today. Return to the emergency department for new or worsening symptoms including fever, yellowing of your skin, vomiting, or if your pain returns and does not go away within 3-4 hours. Stand Alone Forms: Work Release HPI General Mode of arrival: ambulatory . Date/Time Provider Initiated Documentation: 12/29/23 04:50 . Limitations to Documentation: no limitations . Information obtained by: patient and old records reviewed . HPI Narrative: 33yo M with hx autism, ADHD, known gallstones, presenting for RUQ pain. Woke around 0330 this morning with 6/10 RUQ pain. Has not taken anything for pain. Pain is dull, burning, constant, non-radiating. No alleviating or aggravating factors. Had similar pain in June as well as in October attributed to gallstones. Pain has decreased to around 3/10. No fevers, nausea, or vomiting. He is otherwise in his usual state of health with no chills, rash, lower a bdominal pain, flank pain, dysuria, hematuria, or other concerns. Related Data Home Medications ?Medication ?Instructions ?Recorded ?Confirmed Unknown [No Known Home Meds] 10/18/23 12/29/23 Allergies Allergy/AdvReac Type Severity Reaction Status Date / Time No Known Allergies Allergy Verified 12/29/23 04:55 General Stated Complaint: Abd Prob ALISON: 3 Review of Systems Narrative: see HPI Exam Narrative Exam Narrative: General: Alert, well appearing, well nourished, in no acute distress. Head: Normocephalic, atraumatic Neck: Trachea midline, ?Neck supple. Cardiac: ?RRR, no murmurs appreciated Resp: No respiratory distress. CTAB. Abd: ?Soft, non-distended, non-tender. No RUQ tenderness to palpation. Negative Young's. : ?No suprapubic tenderness. No CVA tenderness. Extremities: ?No deformities.? No peripheral edema. Neurologic: GCS 15. ? Moves all extremities freely against gravity Course Vital Signs Vital signs: Vital Signs Temperature 36.8 C 12/29/23 04:50 Pulse 75 12/29/23 04:50 Respiratory Rate 16 12/29/23 04:50 Blood Pressure 141/84 H 12/29/23 04:50 Pulse Oximetry 98 12/29/23 04:50 Temperature 36.8 C 12/29/23 04:52 Pulse 75 12/29/23 04:52 Respiratory Rate 16 12/29/23 04:52 Respiratory Effort Normal, Non-Labored 12/29/23 04:52 Blood Pressure 141/84 H 12/29/23 04:52 Blood Pressure Position Supine 12/29/23 04:52 Pulse Oximetry 98 12/29/23 04:52 Oxygen Delivery Method Room Air 12/29/23 04:52 Oxygen Flow Rate 0 12/29/23 04:50 Pain Level 4 12/29/23 04:52 Medical Decision Making 33yo M with hx autism, ADHD, known gallstones, presenting for RUQ pain. Woke around 0330 this morning with 6/10 RUQ pain. Has not taken anything for pain, has since improved to 3/10. No fevers, nausea, or vomiting. US read from Jun reviewed; contracted gallbladder with gallstones present. ED visit note from October reviewed, similar symptoms at that time. Borderline hypertensive on arrival, vital signs otherwise reassuring. Benign abdominal exam; negative Young's and no RUQ or epigastric tenderness. He has no rash to suggest shingles and no CVA tenderness or hematuria to suggest kidney stone. Not septic. Not consistent with cholecystitis or choledocolithiasis. Suspect most likely symptomatic biliary colic again today. Will treat with tylenol & toradol, eval further with CBC/CMP/lipase. Labs reviewed as below, CBC with no leukocytosis or anemia, CMP with normal LFTs and electrolytes, lipase normal (not pancreatitis). On reassessment he remains well appearing with reassuring vital signs, pain now minimal. Overall consistent with biliary colic. Discharged home to followup with PCP. Discharge instructions and return precautions reviewed with patient. All questions were answered and he is in full agreement with the plan. Lab Data Lab results reviewed: Yes I reviewed the patient's lab results. Quality:SDOH Health Related Social Needs: Health related social needs risk of homeless Health related social needs details has own apartment, no issues with food sources per pt. PFSH All Active Problems (Updated 12/29/23 @ 05:26 by Anastacia Bonilla MD) Biliary colic (Acute) Cholelithiasis (Acute) per 06/19/23 US RUQ discomfort (Acute) Gastrointestinal tract imaging abnormality (Acute) 06/2023 US ([facility]) Conductive hearing loss, external ear (Acute) Impacted cerumen of left ear (Acute) Routine general medical examination at a health care facility (Acute) Autism (Acute) Attention deficit disorder with hyperactivity (Acute) Encounter to establish care (Acute) Medical History Attention deficit disorder without mention of hyperactivity Surgical History H/O eye surgery at History of placement of ear tubes ~1992 Family History Mother Alcohol abuse Substance abuse Father , Heart Attack or Stroke Alcohol abuse Substance abuse Social History (Updated 06/11/23 @ 10:44 by Rosy Rivero LPN) Smoking/Tobacco Use Status: Current every day Tobacco Type: e-cigarettes Smoking risk assessment performed?: Yes Alcohol Intake: never Drug use: Never Substance use type: does not use Adopted: Yes Foster care: Yes Household members: none Housing: apartment Number of Children: 1 Communication Needs: Corrective Lenses Education Level: high school Do you need help understanding health information?: Always current occupation: unemployed at present Sexually active: Yes Do you think of yourself as: straight/heterosexual Current gender identity: male How often do you talk on the phone with friends or family?: once per week How often do you get together with friends or relatives?: once per week Panel score (0-1 are the most socially isolated patients): 0 What type of physical activity do you participate in: walking Duration: 15-30 minutes/day Frequency: daily Seatbelt use: always Drive intox or ride w/intox 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
[2023-12-29 05:08] LABS: Abs Immature Grans 0.02 10^3/uL (0.0-0.06); Absolute Basophil Count 0.04 10^3/uL (0.0-0.2); Absolute Eosinophil Count 0.14 10^3/uL (0.0-0.7); Absolute Lymphocyte Count 1.94 10^3/uL (1.2-3.4); Absolute Monocyte Count 0.56 10^3/uL (0.1-0.8); Absolute Neutrophil Count 5.29 10^3/uL (1.2-6.7); Basophils % 0.5 %; Eosinophils % 1.8 %; HCT 47.1 % (40.0-50.0); HGB 16.4 g/dL (13.5-17.5); Immature Grans % 0.3 %; Lymphocytes % 24.3 %; MCH 31.8 pg (27.0-33.0); MCHC 34.8 % (32.0-36.0); MCV 91 fL (80-95); MPV 9.7 fL (8.0-11.0); Neutrophils % 66.1 %; Platelet Count 225 10^3/uL (130-400); RBC 5.16 10^6/uL (4.36-5.78); RDW 12.3 % (11.8-14.1); RDW-SD 40.8 fL; WBC 7.99 10^3/uL (4.4-10.8)
[2023-12-29 05:29] LABS: ALT 34 U/L (16-63); AST 15 U/L (15-37); Albumin 3.8 g/dL (3.4-5.0); Alkaline Phosphatase 74 U/L (46-116); Anion Gap 10.5 mmol/L (3-11); BUN 12 mg/dL (7-18); Bilirubin, Total 0.45 mg/dL (0.2-1.0); CO2 28.5 mmol/L (21.0-32.0); CREATININE 1.1 mg/dL (0.70-1.30); Calcium 8.9 mg/dL (8.5-10.1); Chloride 104 mmol/L (98-107); Estimated GFR 90.34 (mL/min/1.73m2); Glucose 132 mg/dL (74-106); Lipase 64 U/L (16-77); Potassium 3.9 mmol/L (3.5-5.1); Sodium 143 mmol/L (136-145); Total Protein 6.9 g/dL (6.4-8.2)
[2023-12-29] MEDS: Acetaminophen 325 MG TAB 650 MG PO (05:40)
[2023-12-29] MEDS: Ketorolac 15 MG/ML VIAL IVP (05:40)
== END 2023-12-29 05:51 | disposition home or self-care (01) ==
PROVIDERS: Emergency Provider Student in an Organized Health Care Education/Training Program; PCP Nurse Practitioner
DX: R10.11 Right upper quadrant pain (principal); K80.50 Calculus of bile duct without cholangitis or cholecystitis without obstruction
CPT/HCPCS: 36415; 80053; 83690; 96374; 99284; 85025; 99283; J1885